=== PATIENT | female | born 1985 | race Caucasian/White ===

== ENCOUNTER 2018-01-12 12:08 | Outpatient (CLI) | payer BC, SELFPAY ==
--- NOTE | 2018-01-12 09:22 | DI.US_ITS ---
SYMPTOM/DIAGNOSIS: BREAST TENDERNESS, N64.4 RIGHT BREAST ULTRASOUND: Ultrasound examination was performed to evaluate question of palpable abnormality of the 10 o'clock position of the right breast. No mass or cyst identified in this area. CONCLUSION: No breast mass identified.
== END 2018-01-12 12:28 ==
PROVIDERS: PCP Nurse Practitioner Family; Visit Provider Nurse Practitioner Family
DX: N64.4 Mastodynia (principal)
CPT/HCPCS: 76642

== ENCOUNTER 2020-07-22 08:26 | Outpatient (REF) | payer BC, SELFPAY ==
[2020-07-22 15:33] LABS: HCT 39.9 % (36.0-46.0); HGB 13.5 g/dL (11.2-15.7); MCH 29.7 pg (27.0-33.0); MCHC 33.8 % (32.0-36.0); MCV 87.9 fL (80-95); MPV 11.7 fL (8.0-11.0); Platelet Count 257 10^3/uL (130-400); RBC 4.54 10^6/uL (3.93-5.22); RDW-SD 41.9 fL; WBC 5.05 10^3/uL (4.4-10.8)
[2020-07-22 16:14] LABS: Anion Gap 8.4 mmol/L (3-11); BUN 14 mg/dL (7-18); CO2 23.6 mmol/L (21.0-32.0); CREATININE 0.7 mg/dL (0.55-1.02); Calcium 8.4 mg/dL (8.5-10.1); Calculated LDL 90 mg/dL (<100); Chloride 107 mmol/L (98-107); Cholesterol 165 mg/dL (<200); Glucose 89 mg/dL (74-106); HDL Cholesterol 68 mg/dL (40-60); Potassium 4.7 mmol/L (3.5-5.1); Sodium 139 mmol/L (136-145); Triglyceride 35 mg/dL (<150)
== END 2020-07-22 08:27 | disposition home or self-care (01) ==
LOC: NCHCN 08:26
PROVIDERS: PCP Nurse Practitioner Family; Visit Provider Nurse Practitioner Family
DX: Z00.00 Encounter for general adult medical examination without abnormal findings (principal); Z13.220 Encounter for screening for lipoid disorders; Z13.228 Encounter for screening for other metabolic disorders; Z13.0 Encounter for screening for diseases of the blood and blood-forming organs and certain disorders involving the immune mechanism
CPT/HCPCS: 80048; 80061; 85027

== ENCOUNTER 2022-04-02 16:55 | Outpatient (REF) | payer OTHER, SELFPAY ==
--- NOTE | 2022-04-02 15:30 | PAPFT_PTH ---
PATIENT: Alexander LOC: COUNTS INCLUDE 234 BEDS AT THE [facility] U#:[id number] AGE/SX: 36/F ROOM: RE04/02/[address]: Leonor Saenz : 1985 BED: DIS: 04/02/2022 SPEC #: [id number] RECD: 04/02/22 17:37 STATUS: DAVID REQ #: [id number] SANDRA: 04/02/22 15:[address]: Leonor Saenz DEPT: [facility] Cytology RECD BY: Darling Lee ENTERED: 04/02/22 17:38 SP TYPE: PAPFT OTHR DR: Carie Owens Tissues: 1 - CX/ENDOCX FOR PAP SMEARS Procedures: PAP THIN PREP/UVM Screening HPV DNA PROBE Comments: [id number]
== END 2022-04-02 16:56 | disposition home or self-care (01) ==
LOC: NCHCN 16:55
PROVIDERS: PCP Nurse Practitioner Family; Visit Provider Nurse Practitioner Family
DX: Z12.4 Encounter for screening for malignant neoplasm of cervix (principal); Z00.00 Encounter for general adult medical examination without abnormal findings; Z11.51 Encounter for screening for human papillomavirus (HPV)
CPT/HCPCS: 88142; 87624

== ENCOUNTER → 2023-04-21 00:57 | Outpatient (CLI) | payer OTHER, SELFPAY ==
--- NOTE | 2023-04-21 | DI.RAD_ITS ---
Exam(s) RF BARIUM SWALLOW EXAM: RF BARIUM SWALLOW CLINICAL HISTORY: DYSPHAGIA, R13.10 TECHNIQUE: 2D and realtime digital imaging was performed. CONTRAST MATERIAL: Single and double contrast technique performed. COMPARISON: No exams were available for comparison FINDINGS: ESOPHAGRAM: Swallowing mechanism appears grossly intact. No aspiration. No Zenker's diverticulum seen. No hype rtense upper esophageal sphincter evident. The esophagus exhibits normal luminal diameter and there are no fixed lesions in the esophagus. No hiatal hernia seen. No Schatzki ring. No diverticuli. G E junction appears unremarkable. No tertiary waves. No achalasia. IMPRESSION: Unremarkable esophagram. RADIATION DOSE DELIVERED: mary Walker=14.1 mGy
[2023-04-21] MEDS: Barium Sulfate 60% W/V 355 ML BTL PO (09:50)
[2023-04-21] MEDS: Barium Sulfate 98% W/W 140 ML BTL PO (09:50)
[2023-04-21] MEDS: Simethicone/Sod Bicarb/Cit Ac, 4 gram PACKET 1 PACKET PO (09:51)
== END ==
PROVIDERS: PCP Family Medicine; Visit Provider Nurse Practitioner Family
DX: R13.10 Dysphagia, unspecified (principal)
CPT/HCPCS: 74221; J3490

== ENCOUNTER 2024-01-07 15:33 | Outpatient (REF) | payer OTHER, SELFPAY ==
--- OUTSIDE RECORDS SUMMARY | 2024-01-07 15:35 | XMS_ITS | Encounter Summary ---
Author Organization [facility] Address [facility] [place] [address] Care Team Providers Care Ballet Dancer Name Role Phone Zakia Delgadillo APRN Primary Care Provider + Reason for Visit * Reason Comments Suture / Staple Removal Encounter Details Date Type Department Care Team (Late st Contact Info) Description 12/15/2012 8:00 AM EDT Office Visit Dermatology [address] [place] [address] [address] [place], [place] [id number] Alexx Gresham MD [address] [place] [address] RD, [place] [address] Visit for suture removal (Primary Dx) Social History Tobacco Use Types Packs/Day Years Used Date Smoking Tobacco: Never Sex and Gender Information Value Date Recorded Sex Assigned at Not on file Gender Identity Not on file Sexual Orientation Not on file documented as of this encounter Progress Notes * Alexx Gresham MD - 12/15/2012 8:13 AM EDT Problem is followup suture removal and biopsy results. July follows up and the biopsy results are not yet available, but she has had good wound healing of both biopsy sites. Physical examination reveals good healing of site A, root of nose, probable nevus excision, and of site B, umbilicus, probable nevus shave biopsy site. Assessment and Plan: Suture removal. a. Both sites healed well. b. Today two sutures removed uneventfully from root of nose, site A. c. May DC wound care instructions. d. Discussed gradual resolution over the next month of any residual erythema. Discussed the importance of washing the site carefully for a month as it heals. Return to clinic here p.r.n. for new lesions/concerns. COPY: Zakia Delgadillo A.P.R.N. documented in this encounter Plan of Treatment Not on file documented as of this encounter Visit Diagnoses Diagnosis Visit for suture removal- Primary Encounter for removal of sutures documented in this encounter Care Teams Ballet Dancer Relationship Specialty Start Date End Date Zakia Delgadillo, VULCANIZER RUBBER PLATE PCP - General 09/06/12 02/18/15 documented as of this encounter
--- OUTSIDE RECORDS SUMMARY | 2024-01-07 15:35 | XMS_ITS | Encounter Summary ---
Author Organization [facility] [place] [address] Care Team Providers Care Plant Guard Name Role Phone Kaushal Mahoney APRN Primary Care Provider + Reason for Visit * Reason Comments Benign Breast Encounter Details Date Type Department Care Team (Late st Contact Info) Description 07/19/2013 9:00 AM EDT Office [place] [address] Allie Martinez APRN [facility] [place] [address] Nipple discharge (Primary Dx); Breast mass Discharge Disposition: Home Social History Tobacco Use Types Packs/Day Years Used Date Smoking Tobacco: Never Sex and Gender Information Value Date Recorded Sex Assigned at Not on file Gender Identity Not on file Sexual Orientation Not on file documented as of this encounter Progress Notes * Allie Martinez APRN - 07/19/2013 11:25 AM EDT Ms. Munoz is a 27 y.o. year-old patient who I am seeing at the request of Kaushal Mahoney APRN, for a clinical breast exam in the face of a history of a mass in the upper lateral aspect of her leftbreast and discolored milk from her left breast. By way of history, two years ago while nursing her second child she felt the left breast mass.US were done which were normal. She became last year while nursing her second child and delivered her son about 7 weeks ago. She can still feel the mass but it has not changed. After her son was born her milk came in and she was nursing well,but shortly after that her left milk production slowed down and developed a brownish color.It was never frankly bloody and it eventually cleared up and is now normal in appearance. During this time she was seen by Dr Lu and has had a normal CBE and US showed a small cyst at 0200.She also comments on an intermittently inverted left nipple which easily everts and she is successfully nursing from both breasts. She has been either or lactating since 2005. She admits to being highly anxious and is here today for another opinion about what is going on. She denies any skin changes, breast trauma or prior breast surgery. Imaging performed: left US at [facility]/cat 2 . She does have a history of cystic breast tissue and has not had cysts aspirated or breast biopsies in the past. She does do frequent self-breast exams. Weight stable (gained 55 lbs while , now down 40 lbs). She has no new or concerning complaints of fatigue, cardiovascular or respiratory symptoms. All other ROS are negative. Reproductive History: , had her first child at the age of 20 and did nurse her children. Menarche began at 13.Her LMP was recently. HRT/OC: none Family History: Negative for ovarian cancer. 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 She does not smoke. Past Medical History: Noncontributory. Past Surgical History: Noncontributory Physical Exam: She looks well and is in no apparent distress. Her skin is anicteric with good turgor. Sclera are anicteric. Her head and neck are without masses or adenopathy. Her arms have good ROM without any evidence of lymphedema. Breasts are large,full and symmetric. Her nipples are everted. There is no axillary adenopathy on the right or the left. There are no skin changes or dimpling noted in either breast. The left breast is notable for firm but generally homogenous breast tissue,without discrete masses.Slightly prominent area of flat,focal nodular tissue at 0200. Her right breast exam is similar in character to her left breast,without discrete masses. Assessment: Clinical breast exam notable for fibrocystic breast tissue without discrete masses.History of intermittent nipple inversion likely related to lactational changes.Resolution of discolored milk,likely related to stagnant milk or mild ductal trauma from nursing. Normal exam. Plan: I have discussed my assessment and recommendations with Ms. Munoz to include occasional self-breast exams and annual clinical breast exams. We discussed how the symptoms she has been experiencing are most likely related tolactational changes and will improve over time. In light of her history and findings, I recommend observation at this time and PRN surgical follow up. Ms. Munoz agrees to this plan. KAUSHAL MAHONEY APRN documented in this encounter Plan of Treatment Not on file documented as of this encounter Visit Diagnoses Diagnosis Nipple discharge- Primary Other sign and symptom in breast Breast mass Lump or mass in breast documented in this encounter Care Teams Plant Guard Relationship Specialty Start Date End Date Kaushal Mahoney APRN PCP - General 09/06/12 02/18/15 documented as of this encounter
--- OUTSIDE RECORDS SUMMARY | 2024-01-07 15:35 | XMS_ITS | Clinical Summary ---
Author Organization [facility] [place] [address] Care Team Providers Care Dog Boarder Name Role Phone Unknown Primary Care Provider Unavailabl e Allergies No known active allergies Medications No known medications Active Problems Problem Noted Date Diagnosed Date Fibrocystic breast changes 07/19/2013 Visit for suture removal 12/15/2012 Nevus 09/26/2012 Social History Tobacco Use Types Packs/Day Years Used Date Smoking Tobacco: Never Sex and Gender Information Value Date Recorded Sex Assigned at Not on file Gender Identity Not on file Sexual Orientation Not on file Plan of Treatment Health Maintenance Due Date Last Done Comments HIV screen 2002 Hepatitis C Screening 2002 Hepatitis B vaccine (0-59 yrs) (1) 10/02/2003 Tdap adult 10/02/2003 Tetanus vaccine 10/02/2003 HPV test 2014 PAP Smear 2014 Covid-19 Vaccine ( season) 2023 Influenza (Flu) vaccine (1 o f 1 - Influenza standard series) 12/26/2023 Care Teams Dog Boarder Relationship Specialty Start Date End Date Unknown None PCP - General 11/24/18
--- OUTSIDE RECORDS SUMMARY | 2024-01-07 15:35 | XMS_ITS | Encounter Summary ---
Author Organization [facility] Address [facility] [place] [address] Care Team Providers Care Post Hole Digging Machine Operator Name Role Phone Zakia Delgadillo APRN Primary Care Provider + Reason for Visit * Reason Comments Skin Check Encounter Details Date Type Department Care Team (Late st Contact Info) Description 09/26/2012 10:45 AM EDT Office Visit Dermatology [address] [facility] [address] [place], [place] [phone] Alexx Gresham MD [address] [place] [address] RD, [place] [address] Nevus (Primary Dx) Social History Tobacco Use Types Packs/Day Years Used Date Smoking Tobacco: Never Sex and Gender Information Value Date Recorded Sex Assigned at Not on file Gender Identity Not on file Sexual Orientation Not on file documented as of this encounter Progress Notes * Alexx Gresham MD - 09/26/2012 11:24 AM EDT Problem is facial lesion of concern. Elida is a 26-year-old woman who is about seven weeks with her third child. At about the age of 11 she ran into a piece of sheet metal and cut herself on the glabella. Following that, a bump developed that has been growing ever since, and it is often rubbed and irritated. It bothers her. The patient wonders about having this removed. Further, she points to a lesion on the umbilicus which during her previous pregnancies became exophytic and is often rubbed or irritated. She would like to have removed as well. 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 She does have a fair amount of morning sickness during her pregnancies and is not yet taking vitamins, waiting for the first trimester to pass before attempting this. Physical examination reveals a pleasant 26-year-old who has a compound versus intradermal nevus on the glabella just right of midline with a single hair growing from its center. It measures about 4 mm in diameter. She has pedunculated nevus in the umbilicus as well. The patient is blue eyed, blonde, and fair skinned. Assessment and Plan: Bothersome, often irritated nevi. a. We will schedule a 45-minute appointment for excision of this after she gets through her first trimester. b. We will schedule this for late October or early November. c. Discussed procedure, which includes excision and surgical closure, on the glabella and same for the umbilical area. COPY: Hailey Jacobs A.P.R.N. documented in this encounter Plan of Treatment Not on file documented as of this encounter Visit Diagnoses Diagnosis Nevus- Primary Benign neoplasm of skin, site unspecified documented in this encounter Care Teams Post Hole Digging Machine Operator Relationship Specialty Start Date End Date Zakia Delgadillo, JENNY PCP - General 09/06/12 02/18/15 documented as of this encounter
--- OUTSIDE RECORDS SUMMARY | 2024-01-07 15:35 | XMS_ITS | Encounter Summary ---
Author Organization [facility] Address [facility] [address] Care Team Providers Care Carton Making Machinist Name Role Phone Zakia Delgadillo APRN Primary Care Provider + Reason for Visit * Reason Comments Procedure Encounter Details Date Type Department Care Team (Late st Contact Info) Description 12/08/2012 2:15 PM EDT Office Visit Dermatology [address] [place] [address] [address] [place], [place] [phone] Alexx Gresham MD [address] [place] [address] RD, [place] [address] Nevus (Primary Dx) Social History Tobacco Use Types Packs/Day Years Used Date Smoking Tobacco: Never Sex and Gender Information Value Date Recorded Sex Assigned at Not on file Gender Identity Not on file Sexual Orientation Not on file documented as of this encounter Progress Notes * Alexx Gresham MD - 12/08/2012 2:50 PM EDT Clinical Impression: Nevus, site A, root of nose; site B, umbilicus. Size: A: 5 mm. B: 6 mm. Deep Suture: None. Surface Suture: A: 5-0 Ethilon. B: Shave biopsy, no suture utilized. Followup: One week for suture removal and biopsy results. Indications for surgery, possible adverse outcomes, and activity restrictions were discussed in this patient whose due date is May 26, 2013. Informed verbal consent was obtained. The skin surface was prepared with rubbing alcohol and the sites were prepped and draped in the usual sterile manner. Local anesthesia with 1% lidocaine, 1:100,000 epinephrine, and 0.1 mEq/mL bicarbonate. Using a #15 blade, an elliptical incision was carried out around site A, and this was then submitted for pathologic analysis. Two 5-0 sutures were placed for closure. Then attention was turned to site B where a shave biopsy was utilized to remove this and then electrodesiccation utilized for hemostasis. Triple antibiotic ointment, Telfa gauze dressing, and a Band-Aid were placed at this site. Wound care instructions and supplies were given. Follow up in seven days for suture removal by Dr. Gresham in [facility]. COPY: Dori Tyson documented in this encounter Procedure Notes * Provider, Scanning - 12/28/2012 11:36 AM EDTAssociated Order(s): SCAN DOC: SURGICAL PATHOLOGY documented in this encounter Plan of Treatment Not on file documented as of this encounter Procedures Procedure Name Priority Date/Time Associated Diagnosis Comments SURGICAL PATHOLOGY SCAN 12/28/2012 11:36 AM EDT documented in this encounter Results * SCAN DOC: SURGICAL PATHOLOGY (12/28/2012 11:36 AM EDT) Narrative 12/28/2012 11:36 AM EDT Procedure Note Provider, Scanning - 12/28/2012 11:36 AM EDT Scanning Provider MEDIA MGR SCAN EXT O RDR/RSLT documented in this encounter Visit Diagnoses Diagnosis Nevus- Primary Benign neoplasm of skin, site unspecified documented in this encounter Care Teams Carton Making Machinist Relationship Specialty Start Date End Date Zakia Delgadillo, RESIN MAKER PCP - General 09/06/12 02/18/15 documented as of this encounter
[2024-01-07 15:58] LABS: Bacteria Rare HPF (Negative); C & S Indicated? C&S Done As Ordered; Casts Negative LPF (Negative); Crystals Negative HPF (Negative); Epithelial Cells Few HPF (Negative); Mucus Moderate (Negative); RBC 0-2 HPF (0-2); WBC 0-2 HPF (0-5)
[2024-01-08 14:36] LABS: Bacterial Vaginosis (BV) Negative (Negative); Candida glabrata Negative (Negative); Candida species group Positive (Negative); Trichomonas vaginalis Negative (Negative)
[2024-01-10 12:41] LABS: Chlamydia Result Negative (Negative); GC Result Negative (Negative)
== END 2024-01-07 15:34 | disposition home or self-care (01) ==
LOC: LBN 15:33
PROVIDERS: PCP Family Medicine; Visit Provider Physician Assistant Medical
DX: R30.0 Dysuria (principal); N89.8 Other specified noninflammatory disorders of vagina
CPT/HCPCS: 81513; 87481; 87491; 87591; 87661; 81015; 87086

== ENCOUNTER 2024-11-02 12:34 | Outpatient (CLI) | payer OTHER, SELFPAY ==
--- NOTE | 2024-11-02 | DI.RAD_ITS ---
Exam(s) XR FOOT LT COMPLETE EXAM: XR FOOT LT COMPLETE CLINICAL HISTORY: LT POSTERIOR LAT HEEL PAIN,M79.672,FELL FROM LADDER. TECHNIQUE: 2D digital imaging was performed. COMPARISON: No exams were available for comparison FINDINGS: 3 views No evidence of fracture or diastasis of the Lisfranc joint. The great toe metatarsophalangeal joint appears unremarkable as do the other articulations of the foot. There is no pes planus. There is no inferior calcaneal spur and there is no calcification in the plantar fascia Posteriorly there are no enthesophytes on the posterior calcaneus but there is a soft tissue density associated with the distal Achilles tendon. Difficult to determine if this is actual thickening of the tendon or overlying callus. There is no radiopaque foreign body at this level nor elsewhere on these images. There is no gas in soft IMPRESSION: No significant osseous findings in the left foot. There is focal thickening in the region of the distal Achilles tendon. DATA REPOSITORY: RADIATION DOSE DELIVERED:
== END 2024-11-02 12:54 ==
PROVIDERS: PCP Family Medicine; Visit Provider Physician Assistant Medical
DX: M79.672 Pain in left foot (principal)
CPT/HCPCS: 73630